=== PATIENT | female | born 1940 | race Caucasian/White ===

== ENCOUNTER 2016-12-20 20:56 | Emergency (ER) | payer OTHER ==
[~2016-12-20] VITALS: Ht 160 cm; Wt 69.6 kg
[~2016-12-20 20:56] MED LIST: BUSPAR5 MG PO; CLARITIN10 M3 PO; COENZYME Q10 21 EACH PO; COLACE100 MG PO; DAILY VITE WIT1 EACH PO; DESYREL100 MG PO; ENDOCET 5-3251 EACH PO; ESSENTIAL DAIL1 EACH PO; FLONASE16 G1 BOTH NARES; LOVENOX40 MG/0.4 SC; PERCOCET 5/31 TABLET PO; PRESERVISION S1 EACH PO; PRINIVIL5 MG PO; PROZAC10 MG PO; Q-TUSSIN DM SY240 ML PO; SIMVASTATIN20 MG PO; TRAZODONE HCL100 MG PO; TYLENOL REGULA325 MG PO; VALIUM2 MG PO; VALSARTAN160 MG PO; VIACTIV SOFT C1 EACH PO; VITAMIN D1000 INTUN PO
[2016-12-20 21:48] LABS: EOSINOPHIL (%) 2.6 % (0-5); EOSINOPHIL COUNT 0.2 K/uL (0-0.3); HEMATOCRIT 36.4 % (36.0-46.0); IMMATURE GRANULOCYTE (%) 0.3 % (0.0-0.7); INSTRUMENT ABS NEUTROPHIL CT 4.9 K/uL; LYMPHOCYTE COUNT 1.2 K/uL (1.0-2.8); MCH 28.6 PG (29.0-34.0); MCHC 32.1 G/DL (30.0-36.0); MEAN PLAT.VOLUME 10.3 uM^3 (9.5-12.4); MONOCYTE (%) 9.3 % (3-12); MONOCYTE COUNT 0.7 K/uL (0-0.8); NEUTROPHIL (%) 70.6 % (45-76); NEUTROPHIL COUNT 4.9 K/uL (1.8-6.4); PLATELET COUNT 235 K/uL (156-360); RBC DIS.WIDTH-CV 13.9 % (11.8-14.6); RBC DIS.WIDTH-SD 45.2 % (39-53); RED BLOOD COUNT 4.09 M/uL (3.80-5.20)
[2016-12-20 22:02] LABS: CHLORIDE 105 mEq/L (99-109); POTASSIUM 4.5 mEq/L (3.7-5.4); SODIUM 141 mEq/L (136-147)
[2016-12-20 22:03] LABS: GLUCOSE 118 mg/dL (70-99)
[2016-12-20 22:05] LABS: ANION GAP 9 MEQ/L (2-14)
[2016-12-20 22:07] LABS: GFR ESTIMATE (CALCULATED) > 59 mL/min/
[2016-12-20 22:08] LABS: UREA NITROGEN (BUN) 21 mg/dL (9-23)
[2016-12-20 22:16] LABS: TROP-I INTERPRETATION NEGATIVE; TROPONIN-I < 0.01 ng/mL (0.0-0.30)
[2016-12-20 23:47] LABS: ADD MIUA? YES; BILIRUBIN NEGATIVE; BLOOD NEGATIVE; COLOR YELLOW ((YELLOW)); GLUCOSE (STRIP) NEGATIVE; KETONES NEGATIVE; LEUKOCYTES LARGE; NITRITE NEGATIVE; PROTEIN (STRIP) 100; SPECIFIC GRAVITY 1.016 (1.000-1.030); UROBILINOGEN 0.2 MG/DL (0.2-1.0)
[2016-12-21 00:09] LABS: WHITE BLOOD CELLS 20-30 /HPF (0-5)
[2016-12-21 00:10] LABS: BACTERIA 2+ /HPF; EPITHELIAL CELLS 3+ /HPF; MUCUS NONE SEEN /LPF; UCUL ADDED? YES
[2016-12-21] MEDS ORDERED: BACTRIM,SEPT1 TABLET PO (00:31)
[2016-12-21 00:50] VITALS: BP 143/81
== END 2016-12-21 00:51 | disposition home or self-care (01) ==
LOC: EME → EDBD 20:56 → EME 12-21 00:51
PROVIDERS: Emergency Medicine
DX: R55 Syncope and collapse (principal); N39.0 Urinary tract infection, site not specified; W07.XXXA Fall from chair, initial encounter; Y92.190 Kitchen in other specified residential institution as the place of occurrence of the external cause; E78.5 Hyperlipidemia, unspecified; F71 Moderate intellectual disabilities; R73.03 Prediabetes
CPT/HCPCS: 70450; 71275; 80048; 81003; 84484; 85025; 85379; 87086; 93005; 99281; 99284; J7030

== ENCOUNTER 2017-06-30 20:29 | Observation (INO) | payer OTHER ==
[~2017-06-30] VITALS: Ht 165.1 cm; Wt 70.2 kg
[~2017-06-30 20:29] MED LIST changes: +BACTRIM,SEPT1 TABLET PO; +COZAAR100 MG PO; -VALSARTAN160 MG PO
[2017-06-30 22:16] LABS: EOSINOPHIL (%) 1.3 % (0-5); EOSINOPHIL COUNT 0.1 K/uL (0-0.3); HEMATOCRIT 37.7 % (36.0-46.0); IMMATURE GRANULOCYTE (%) 0.4 % (0.0-0.7); INSTRUMENT ABS NEUTROPHIL CT 7.7 K/uL; MCH 29.3 PG (29.0-34.0); MCHC 32.6 G/DL (30.0-36.0); MCV 89.8 FL (83-99); MEAN PLAT.VOLUME 10.6 uM^3 (9.5-12.4); MONOCYTE (%) 8.8 % (3-12); MONOCYTE COUNT 0.9 K/uL (0-0.8); NEUTROPHIL (%) 79.4 % (45-76); NEUTROPHIL COUNT 7.7 K/uL (1.8-6.4); PLATELET COUNT 218 K/uL (156-360); RBC DIS.WIDTH-CV 13.8 % (11.8-14.6); RBC DIS.WIDTH-SD 44.9 % (39-53); WHITE BLOOD COUNT 9.8 K/uL (4.1-10.2)
[2017-06-30 22:37] LABS: TROP-I INTERPRETATION NEGATIVE; TROPONIN-I < 0.01 ng/mL (0.0-0.30)
[2017-06-30 22:53] LABS: CHLORIDE 105 mEq/L (99-109); POTASSIUM 4.4 mEq/L (3.7-5.4); SODIUM 138 mEq/L (136-147)
[2017-06-30 22:55] LABS: GLUCOSE 131 mg/dL (70-99)
[2017-06-30 22:56] LABS: ANION GAP 10 MEQ/L (2-14)
[2017-06-30 22:57] LABS: TOTAL BILIRUBIN 0.2 mg/dL (0.0-1.0)
[2017-06-30 22:58] LABS: ALKALINE PHOSPHATASE 78 IU/L (3-129)
[2017-06-30 22:59] LABS: GFR ESTIMATE (CALCULATED) > 59 mL/min/
[2017-06-30 23:00] LABS: UREA NITROGEN (BUN) 17 mg/dL (9-23)
[2017-06-30 23:38] LABS: ADD MIUA? NO; BILIRUBIN NEGATIVE; BLOOD NEGATIVE; COLOR STRAW ((YELLOW)); GLUCOSE (STRIP) NEGATIVE; KETONES NEGATIVE; LEUKOCYTES NEGATIVE; NITRITE NEGATIVE; PROTEIN (STRIP) NEGATIVE; SPECIFIC GRAVITY 1.011 (1.000-1.030); UCUL ADDED? NO; UROBILINOGEN 0.2 MG/DL (0.2-1.0)
[2017-07-01 06:20] LABS: HEMATOCRIT 36.7 % (36.0-46.0); MCH 29.9 PG (29.0-34.0); MCHC 33.5 G/DL (30.0-36.0); MCV 89.1 FL (83-99); MEAN PLAT.VOLUME 10.4 uM^3 (9.5-12.4); PLATELET COUNT 216 K/uL (156-360); RBC DIS.WIDTH-CV 13.7 % (11.8-14.6); RBC DIS.WIDTH-SD 44.7 % (39-53); RED BLOOD COUNT 4.12 M/uL (3.80-5.20); WHITE BLOOD COUNT 7.1 K/uL (4.1-10.2)
[2017-07-01 06:28] LABS: CHLORIDE 107 mEq/L (99-109); POTASSIUM 4.1 mEq/L (3.7-5.4); SODIUM 139 mEq/L (136-147)
[2017-07-01 06:30] LABS: GLUCOSE 104 mg/dL (70-99)
[2017-07-01 06:31] LABS: ANION GAP 9 MEQ/L (2-14)
[2017-07-01 06:34] LABS: GFR ESTIMATE (CALCULATED) > 59 mL/min/
[2017-07-01 06:35] LABS: UREA NITROGEN (BUN) 12 mg/dL (9-23)
[2017-07-01 06:41] LABS: TROP-I INTERPRETATION NEGATIVE; TROPONIN-I < 0.01 ng/mL (0.0-0.30)
[2017-07-01 07:30] VITALS: BP 134/98
[2017-07-01 12:07] VITALS: BP 165/76
[2017-07-01 12:26] LABS: TROP-I INTERPRETATION NEGATIVE; TROPONIN-I < 0.01 ng/mL (0.0-0.30)
[2017-07-01 19:50] VITALS: BP 160/95
[2017-07-02 00:18] VITALS: BP 130/56
[2017-07-02 04:10] VITALS: BP 128/65
[2017-07-02 08:00] VITALS: BP 118/69
[2017-07-02 11:35] VITALS: BP 137/72
[2017-07-02] MEDS ORDERED: MILK OF MAGN PO (15:52)
[2017-07-02] MEDS ORDERED: MELATONIN1 MG PO (15:52)
[2017-07-02] MEDS ORDERED: COZAAR100 MG PO (15:52)
[2017-07-02] MEDS ORDERED: TRIPLE ANTIBIOT30 GM TP (15:52)
[2017-07-02] MEDS ORDERED: RISAMINE OINTM113 GM TP (15:52)
[2017-07-02] MEDS ORDERED: PEPTO-BISM525 MG/15 PO (15:52)
[2017-07-02] MEDS ORDERED: VALIUM2 MG PO (15:55)
[2017-07-02] MEDS ORDERED: FLONASE16 G1 BOTH NARES (15:57)
== END 2017-07-02 13:55 | disposition home or self-care (01) ==
LOC: DELPENDDIS → EME 20:29 → ENPENDDIS 07-01 → EDOF 07-01 02:08 → 4EAST 07-01 02:08 → EDOF 07-01 02:08 → ENRESERV 07-01 02:09 → EDOF 07-01 07:07 → 4EAST 07-01 07:08 → ENPENDDIS 07-02 → 4EAST 07-02 13:55
PROVIDERS: Emergency Medicine; Hospitalist
DX: R55 Syncope and collapse (principal); I10 Essential (primary) hypertension; E78.5 Hyperlipidemia, unspecified; F79 Unspecified intellectual disabilities; F32.9 Major depressive disorder, single episode, unspecified; G89.29 Other chronic pain; M54.9 Dorsalgia, unspecified; H35.30 Unspecified macular degeneration; Z86.73 Personal history of transient ischemic attack (TIA), and cerebral infarction without residual deficits; Z88.0 Allergy status to penicillin; Z88.1 Allergy status to other antibiotic agents
CPT/HCPCS: 70450; 71010; 80048; 80053; 81003; 84484; 85025; 85027; 93005; 95819; 99281; 99284; G0378; J1644; J7030